=== PATIENT | female | born 1980 | race Caucasian/White ===

== ENCOUNTER → 2017-06-24 | Outpatient (REF) | payer OTHER ==
[~2017-06-24] MED LIST: GAVICHW5 PO; MOTR200T44 PO; OMEP10CASR PO; PERC5TAB12 PO; PRENTAB74 PO; REGL10TA6 PO
== END ==
LOC: M LAB REF 15:58
PROVIDERS: ATTEND Nurse Practitioner Family
DX: L60.3 Nail dystrophy (principal); B35.1 Tinea unguium

== ENCOUNTER → 2017-08-04 | Outpatient (CLI) | payer OTHER ==
--- NOTE | 2017-08-05 05:56 | REP ---
Clinical: Pelvic pain and spotting. Technique: Transabdominal pelvic ultrasound followed by transvaginal examination for better evaluation of the endometrium and adnexa with color Doppler evaluation of the ovaries. Findings: Bladder is unremarkable and measures 7.5 x 4.6 x 4.8 cm . Normal anteverted uterus measures 6.7 x 2.6 x 4.1 cm . The endometrial complex measures 4.3 mm thickness. No discrete uterine or endometrial abnormalities are appreciated. Right ovary is normal in appearance and vascularity without evidence for torsion. Right ovary measures 2.7 x 2.0 x 3.2 cm ; R I = 0.53. Left ovary measures 5.8 x 3.3 x 4.0 cm; RI 0.50, and includes 3.0 cm complex septated cyst along with 2 cm hyperechoic mass and 2.1 cm complex cyst which may represent dermoid. No pelvic fluid . Impression: 1. Normal uterus and right ovary. 2. Complex structures within the left ovary may represent dermoid. Contrast enhanced CT of the abdomen/pelvis or MRI may be warranted for further investigation. Signed by Alfie Patel MD 08/05/2017 05:48 A
== END ==
LOC: M RAD 13:22
PROVIDERS: ATTEND Advanced Practice Midwife
DX: R10.9 Unspecified abdominal pain (principal)

== ENCOUNTER → 2017-10-12 | Outpatient (CLI) | payer OTHER ==
--- NOTE | 2017-10-13 06:29 | REP ---
Clinical: Follow up ovarian cyst. Technique: Transabdominal pelvic ultrasound followed by transvaginal examination for better evaluation of the endometrium and adnexa with color Doppler evaluation of the ovaries. Findings: Bladder is normal and measures approximately 9.8 x 8.8 x 5.5 cm. Normal anteverted uterus measures 7.1 x 2.8 x 4.9 cm. Endometrial complex measures 4.9 mm thickness. The right ovary is normal in appearance and vascularity without torsion, and measures 4.2 x 2.0 x 3.1 cm; RI 0.60 . The left ovary is normal in vascularity and measures 7.8 x 5.1 x 5.4 cm; RI 0.53 and includes a complex 1.8 x 1.7 x 2.1 cm hemorrhagic cyst versus dermoid which appears relatively similar to prior examination. A small to moderate amount of complex free fluid is appreciated extending into the right schuyler pelvis. No discrete mass lesion. Impression: 1. Normal uterus and right ovary. 2. Complex left ovarian lesion with cystic and hyperechoic components may reflect hemorrhagic cyst and/or dermoid. Consider CT of the pelvis with contrast for further investigation if necessary. Signed by Alfie Patel MD 10/13/2017 06:20 A
== END ==
LOC: M RAD 12:52
PROVIDERS: ATTEND Obstetrics & Gynecology
DX: N83.202 Unspecified ovarian cyst, left side (principal)

== ENCOUNTER → 2017-10-22 | Outpatient (CLI) | payer OTHER | LOC: M WUC 17:12 | PROVIDERS: ATTEND Obstetrics & Gynecology | DX: D39.12 Neoplasm of uncertain behavior of left ovary (principal) ==

== ENCOUNTER → 2018-08-04 | Outpatient (CLI) | payer OTHER ==
[~2018-08-04] MED LIST changes: +GASTROGRAFIN SOLUTION 30ML (Q9963) As Ordered; -GAVICHW5 PO; -MOTR200T44 PO; -OMEP10CASR PO; -PERC5TAB12 PO; -PRENTAB74 PO; -REGL10TA6 PO
== END ==
LOC: M RAD 12:47
DX: C56.1 Malignant neoplasm of right ovary (principal); Z90.710 Acquired absence of both cervix and uterus

== ENCOUNTER → 2018-08-11 | Outpatient (CLI) | payer OTHER ==
[2018-08-13 10:59] LABS: CA 125 4.2 U/ML (<30.2)
== END ==
LOC: M WUC 15:15
DX: C56.1 Malignant neoplasm of right ovary (principal); C56.2 Malignant neoplasm of left ovary; C79.82 Secondary malignant neoplasm of genital organs

== ENCOUNTER → 2019-08-08 | Outpatient (CLI) | payer OTHER ==
[~2019-08-08] MED LIST changes: -GASTROGRAFIN SOLUTION 30ML (Q9963) As Ordered; +GAVICHW5 PO; +MOTR200T44 PO; +OMEP10CASR PO; +PERC5TAB12 PO; +PRENTAB74 PO; +REGL10TA6 PO
== END ==
LOC: M WUC 15:53
PROVIDERS: ATTEND Obstetrics & Gynecology Gynecologic Oncology
DX: C56.1 Malignant neoplasm of right ovary (principal); C56.2 Malignant neoplasm of left ovary; C79.82 Secondary malignant neoplasm of genital organs

== ENCOUNTER → 2019-12-26 | Outpatient (CLI) | payer OTHER ==
--- NOTE | 2019-12-26 13:55 | REPMRS ---
Patient History The patient states she had a clinical breast exam in 2018. Patient is postmenopausal and has history of ovarian cancer at age 37. Family history of breast cancer at age 59 in mother, unknown cancer in father. Digital Woman Screen Mammo: December 26, 2019 - Exam #: [id number] Bilateral CC and MLO view(s) were taken. Technologist: Noy Prieto, Technologist No prior studies available for comparison. FINDINGS: There are scattered fibroglandular densities. There is no evidence of dominant mass, architectural distortion, or grouped microcalcification typical of malignancy. 3-D tomosynthesis shows no additional findings. Assessment: BI-RADS/ACR category 1 mammogram. Negative Mammogram. Recommendation Breast MRI of both breasts in 6 months. Routine screening mammogram of both breasts in 1 year (for women over age 40). This patient's Lifetime Breast Cancer RIsk is estimated at 22.9 %. Annual screening Breast MRI scanniing is recommended for patient's whose lifetime risk assessment is over 20%. This mammogram was interpreted with the aid of an FDA-approved computer-aided dectection system. Electronically Signed By: Rupert Ferreira MD 12/26/19 [id number]
== END ==
LOC: M WHC 12:46
PROVIDERS: ATTEND Nurse Practitioner
DX: Z12.31 Encounter for screening mammogram for malignant neoplasm of breast (principal)

== ENCOUNTER → 2020-07-05 | Outpatient (CLI) | payer OTHER ==
[~2020-07-05] MED LIST changes: +PROHANCE 279.3MG/ML 15ML VIAL As Ordered ONE; +PROHANCE 279.3MG/ML 5ML VIAL As Ordered ONE
--- NOTE | 2020-08-07 10:51 | REP ---
BILATERAL BREAST MRI STUDY WITHOUT AND WITH INTRAVENOUS (IV) GADOLINIUM HISTORY: High risk breast cancer screening. COMPARISON: 12/26/2019. GADOLINIUM ENHANCEMENT DOSE: 17 mL of intravenous ProHance. BREAST MRI FINDINGS: There is a [id number] pattern of symmetric fibroglandular tissue bilaterally. There is mild background parenchymal enhancement. There is no evidence of significant cystic change in either breast. No axillary adenopathy is seen on either side. High resolution pre- and postcontrast T1 and T2-weighted scans show no evidence of suspicious morphologic abnormality in either breast. Dynamically acquired sequential postcontrast images show no suspicious focus of enhancement and/or washout in either breast to suggest malignancy. Subtraction images are unremarkable. IMPRESSION: BI-RADS Category 1 negative MRI findings. Patients whose estimated breast cancer lifetime risk assessment is greater than 20% merit annual screening MRI scanning in addition to screening mammography MTDD
== END ==
LOC: M RAD 13:46
PROVIDERS: ATTEND Obstetrics & Gynecology Gynecologic Oncology
DX: Z12.39 Encounter for other screening for malignant neoplasm of breast (principal); Z15.01 Genetic susceptibility to malignant neoplasm of breast; Z80.3 Family history of malignant neoplasm of breast
CPT/HCPCS: A9576; C8908

== ENCOUNTER → 2021-08-28 | Outpatient (REF) | payer OTHER ==
[~2021-08-28] MED LIST changes: -PROHANCE 279.3MG/ML 15ML VIAL As Ordered ONE; -PROHANCE 279.3MG/ML 5ML VIAL As Ordered ONE
== END ==
LOC: M LAB REF 16:13
PROVIDERS: ATTEND Internal Medicine
DX: C56.9 Malignant neoplasm of unspecified ovary (principal)

== ENCOUNTER → 2022-02-25 | Outpatient (CLI) | payer OTHER | LOC: M WHC 12:16 | PROVIDERS: ATTEND Nurse Practitioner Adult Health | DX: Z12.31 Encounter for screening mammogram for malignant neoplasm of breast (principal); Z78.0 Asymptomatic menopausal state; Z85.43 Personal history of malignant neoplasm of ovary; Z80.3 Family history of malignant neoplasm of breast ==

== ENCOUNTER → 2022-09-01 | Outpatient (REF) | payer OTHER | LOC: M LAB REF 16:42 | PROVIDERS: ATTEND Nurse Practitioner Adult Health | DX: C56.9 Malignant neoplasm of unspecified ovary (principal) ==

== ENCOUNTER → 2023-05-14 | Outpatient (CLI) | payer OTHER | LOC: M WHC 09:46 | PROVIDERS: ATTEND Nurse Practitioner Adult Health | DX: Z12.31 Encounter for screening mammogram for malignant neoplasm of breast (principal); Z80.3 Family history of malignant neoplasm of breast; Z80.41 Family history of malignant neoplasm of ovary ==

== ENCOUNTER → 2023-09-02 | Outpatient (REF) | payer OTHER | LOC: M LAB REF 12:19 | PROVIDERS: ATTEND Nurse Practitioner Adult Health | DX: C56.9 Malignant neoplasm of unspecified ovary (principal) ==

== ENCOUNTER → 2024-05-30 | Outpatient (CLI) | payer OTHER | LOC: M WHC 12:35 | PROVIDERS: ATTEND Nurse Practitioner Adult Health | DX: Z12.31 Encounter for screening mammogram for malignant neoplasm of breast (principal); R92.323 Mammographic fibroglandular density, bilateral breasts ==

== ENCOUNTER → 2024-09-05 | Outpatient (REF) | payer OTHER | LOC: M LAB REF 16:37 | PROVIDERS: ATTEND Nurse Practitioner Adult Health | DX: C56.9 Malignant neoplasm of unspecified ovary (principal) ==

== ENCOUNTER → 2024-09-29 | Outpatient (CLI) | payer OTHER | LOC: M WHC 08:49 | PROVIDERS: ATTEND Nurse Practitioner Adult Health | DX: Z13.820 Encounter for screening for osteoporosis (principal) ==

== ENCOUNTER → 2025-06-08 | Outpatient (CLI) | payer OTHER | LOC: M WHC 13:37 | PROVIDERS: ATTEND Nurse Practitioner Adult Health | DX: Z12.31 Encounter for screening mammogram for malignant neoplasm of breast (principal); R92.323 Mammographic fibroglandular density, bilateral breasts ==

== ENCOUNTER → 2025-09-06 | Outpatient (REF) | payer OTHER | LOC: M LAB REF 17:34 | PROVIDERS: ATTEND Nurse Practitioner Adult Health | DX: C56.9 Malignant neoplasm of unspecified ovary (principal) ==